=== PATIENT | female | born 1940 | race African-American/Black ===

== ENCOUNTER 2016-11-14 07:16 | Emergency (ER) | payer MEDICARE, MEDICAID ==
[~2016-11-14] VITALS: Ht 154.9 cm; Wt 59.0 kg
[~2016-11-14 07:16] MED LIST: ACYC200C PO; BEE POLLEN PO; BIOTIN PO; CLAR10 PO; DEXA2TAB PO; DIPH1TAB PO; FAMO20TA8 PO; HYDR-4094 PO; LORA1TAB PO; METH1TAB33 PO; METH4TAB17 PO; NORCO; NYST5ORA SSW; POTA10CA42 PO; PREMV VG; TIMOLOL 0.5% LEFTEYE; TURMERIC PO
[2016-11-14] MEDS ORDERED: DIAZEPAM 5 MG TABLET PO ONE (08:00)
[2016-11-14] MEDS ORDERED: MORPHINE SULFATE 10 MG/ML CPJ SUBCUT ONE (10:00)
[2016-11-14] MEDS ORDERED: ONDANSETRON 4MG ODT PO ONE (10:00)
[2016-11-14 11:55] VITALS: BP 136/90
== END 2016-11-14 11:57 | disposition home or self-care (01) ==
LOC: ER 08:17
DX: M54.40 Lumbago with sciatica, unspecified side (principal); I10 Essential (primary) hypertension; M19.90 Unspecified osteoarthritis, unspecified site; Z87.891 Personal history of nicotine dependence; G89.29 Other chronic pain; Z88.0 Allergy status to penicillin; Z88.5 Allergy status to narcotic agent; Z79.899 Other long term (current) drug therapy
CPT/HCPCS: 93971; 96372; 99284; J2270; Q0162

== ENCOUNTER 2017-09-20 08:46 | Emergency (ER) | payer MEDICARE, MEDICAID ==
[~2017-09-20] VITALS: Ht 160 cm; Wt 52.0 kg
[2017-09-20] MEDS ORDERED: IBUPROFEN 800MG TABLET PO ONE (09:15)
[2017-09-20] MEDS ORDERED: CYCLOBENZAPRINE 10MG TABLET PO ONE (09:15)
[2017-09-20] MEDS ORDERED: METHYLPREDNISOLONE SOD SUCC 125 MG/2 ML VIAL IM ONE (09:15)
[2017-09-20] MEDS ORDERED: KETOROLAC 30MG/ML VIAL IM ONE (10:45)
[2017-09-20 12:21] VITALS: BP 163/92
== END 2017-09-20 12:43 | disposition home or self-care (01) ==
LOC: ER 08:46
DX: G89.29 Other chronic pain (principal); M54.5 Low back pain; R20.0 Anesthesia of skin; M19.90 Unspecified osteoarthritis, unspecified site; Z88.0 Allergy status to penicillin; Z88.5 Allergy status to narcotic agent; Z79.899 Other long term (current) drug therapy
CPT/HCPCS: 96372; 99284; J1885; J2930

== ENCOUNTER 2017-11-13 14:47 | Inpatient (IN) | payer MEDICARE, MEDICAID ==
[~2017-11-13] VITALS: Ht 154.9 cm; Wt 55.8 kg
[2017-11-13 17:31] LABS: BASOPHILS % 0.3 % (0.0-2.0); EOSINOPHILS % 0.6 % (0.0-5.0); HEMATOCRIT. 40.6 % (36.0-48.0); HEMOGLOBIN. 13.6 g/dL (12.0-16.0); LYMPHOCYTES % 27.6 % (20.0-50.0); MEAN CORPUSCULAR HEMOGLOBIN 34.4 pg (28.0-32.0); MEAN CORPUSCULAR VOLUME 102.6 fL (81.0-99.0); MEAN PLATELET VOLUME 7.9 fl (7.4-10.4); MONOCYTES % 14.3 % (2.0-8.0); NEUTROPHILS % 57.2 % (40.0-76.0); PLATELET 168 x1000/uL (130-400); RED BLOOD CELL COUNT 3.96 mill/uL (4.2-5.4); RED CELL DISTRIBUTION WIDTH 13.1 % (11.6-14.6)
[2017-11-13 17:32] LABS: CHLORIDE 100 mEq/L (98-107)
[2017-11-13 17:34] LABS: PARTIAL THROMBOPLASTIN TIME 34.4 sec (23.4-31.0); PROTHROMBIN TIME 10.4 sec (9.4-11.6)
[2017-11-13 17:43] LABS: CREATINE KINASE 43 IU/L (26-192)
[2017-11-13 17:44] LABS: CREATINE KINASE MB FRACTION < 0.5 ng/mL (0.5-3.6)
[2017-11-13] MEDS ORDERED: ASPIRIN 81MG TABLET PO STA (18:20)
[2017-11-13] MEDS ORDERED: NITROGLYCERIN OINT 1GM/INCH UDPKT TD STA (18:20)
[2017-11-13] MEDS ORDERED: ONDANSETRON HCL 4MG/2ML VIAL IV STA (18:20)
[2017-11-13] MEDS ORDERED: MORPHINE SULFATE 4 MG/ML CPJ (NOT FOR IM USE) IV STA (18:20)
[2017-11-13 22:00] VITALS: BP_SYST 102; BP_SYST 103; BP_DIAS 60
[2017-11-13] MEDS ORDERED: GABA-531 PO (22:43)
[2017-11-13] MEDS ORDERED: FLUC200T51 PO (22:43)
[2017-11-13] MEDS ORDERED: CLIN300C11 PO (22:43)
[2017-11-13] MEDS ORDERED: DEXT 5%/0.45% NACL 1000ML 1,000 ML IV SCH (22:56)
[2017-11-13] MEDS ORDERED: HYDROMORPHONE HCL/PF 2MG/ML CPJ IV PRN (23:00)
[2017-11-13] MEDS ORDERED: ACETAMINOPHEN 325MG TABLET PO PRN (23:00)
[2017-11-13] MEDS ORDERED: LORAZEPAM 2MG/ML CPJ IV PRN (23:00)
[2017-11-13] MEDS ORDERED: CLONIDINE 0.1MG TABLET PO PRN (23:00)
[2017-11-13] MEDS ORDERED: ONDANSETRON HCL 4MG/2ML VIAL IV PRN (23:00)
[2017-11-13] MEDS ORDERED: FLUCONAZOLE 100MG TABLET PO SCH (23:30)
[2017-11-13 23:52] VITALS: BP 109/69
[2017-11-13] MEDS: MORPHINE SULFATE 4 MG/ML CPJ (NOT FOR IM USE) IV PRN (23:55)
[2017-11-14 00:07] VITALS: BP 112/63
[2017-11-14 04:00] VITALS: BP 102/61
[2017-11-14] MEDS: DEXAMETHASONE 4MG/ML 1ML VIAL IV SCH ×3 (06:17→21:12)
[2017-11-14 06:22] LABS: BASOPHILS % 0.4 % (0.0-2.0); EOSINOPHILS % 0.5 % (0.0-5.0); HEMATOCRIT. 31.8 % (36.0-48.0); HEMOGLOBIN. 10.9 g/dL (12.0-16.0); LYMPHOCYTES % 23.3 % (20.0-50.0); MEAN CORPUSCULAR HEMOGLOBIN 34.9 pg (28.0-32.0); MEAN CORPUSCULAR VOLUME 101.7 fL (81.0-99.0); MEAN PLATELET VOLUME 8.3 fl (7.4-10.4); MONOCYTES % 14.9 % (2.0-8.0); NEUTROPHILS % 60.9 % (40.0-76.0); PLATELET 154 x1000/uL (130-400); RED BLOOD CELL COUNT 3.12 mill/uL (4.2-5.4); RED CELL DISTRIBUTION WIDTH 12.8 % (11.6-14.6)
[2017-11-14] MEDS: MORPHINE SULFATE 4 MG/ML CPJ (NOT FOR IM USE) IV PRN ×2 (06:40→21:13)
[2017-11-14 07:44] LABS: CHLORIDE 101 mEq/L (98-107)
[2017-11-14 08:00] VITALS: BP 132/71
[2017-11-14 08:39] LABS: CLARITY URINE CLEAR (CLEAR); COLOR URINE YELLOW (YELLOW); KETONES URINE 1+ (NEGATIVE); LEUKOCYTE ESTERASE URINE NEGATIVE (NEGATIVE); NITRITE URINE NEGATIVE (NEGATIVE); OCCULT BLOOD URINE 3+ (NEGATIVE); PROTEIN URINE NEGATIVE (NEGATIVE); SPECIFIC GRAVITY URINE 1.019 (1.005-1.030); UROBILINOGEN URINE 0.2 E.U./dL (0.2-1.0)
[2017-11-14] MEDS ORDERED: CLINDAMYCIN HCL PO SCH (09:00)
[2017-11-14 09:12] LABS: *AMPHETAMINES SCREEN URINE NEGATIVE (NEGATIVE); *BARBITURATES SCREEN URINE NEGATIVE (NEGATIVE); *BENZODIAZEPINES SCREEN URINE NEGATIVE (NEGATIVE); *COCAINE SCREEN URINE NEGATIVE (NEGATIVE)
[2017-11-14 09:13] LABS: CANNABINOID URINE SCREEN NEGATIVE (NEGATIVE); METHADONE URINE SCREEN NEGATIVE (NEGATIVE); OPIATES URINE SCREEN PRESUMTIVE POSITIVE (NEGATIVE); PHENCYCLIDINE URINE SCREEN NEGATIVE (NEGATIVE)
[2017-11-14] MEDS: ENOXAPARIN 40MG/0.4ML SYR SUBCUT SCH (09:17)
[2017-11-14] MEDS: CLINDAMYCIN HCL 150MG CAPSULE PO SCH ×2 (10:29→13:29)
[2017-11-14 16:19] VITALS: BP 131/75
[2017-11-14 20:00] VITALS: BP 132/75
[2017-11-14 23:55] VITALS: BP 125/93
[2017-11-15] MEDS: MORPHINE SULFATE 4 MG/ML CPJ (NOT FOR IM USE) IV PRN (01:24)
[2017-11-15 04:00] VITALS: BP 147/80
[2017-11-15] MEDS: DEXAMETHASONE 4MG/ML 1ML VIAL IV SCH ×2 (05:02→05:08)
[2017-11-15 08:00] VITALS: BP 150/76
[2017-11-15] MEDS: ENOXAPARIN 40MG/0.4ML SYR SUBCUT SCH (09:00)
[2017-11-15 12:00] VITALS: BP 171/87
[2017-11-15] MEDS ORDERED: CLINDAMYCIN HCL 150MG CAPSULE PO SCH (18:00)
== END 2017-11-15 15:40 | disposition home or self-care (01) | DRG 552 ==
LOC: ER 14:47 → 8WST 19:59 → EDBEDREQ 20:04 → EDBEDREQTM 20:04 → ENRESERV 20:24
PROVIDERS: ADMIT Internal Medicine Nephrology; ATTEND Internal Medicine Nephrology
DX: M48.02 Spinal stenosis, cervical region (principal); J84.9 Interstitial pulmonary disease, unspecified; E87.1 Hypo-osmolality and hyponatremia; M41.9 Scoliosis, unspecified; M47.812 Spondylosis without myelopathy or radiculopathy, cervical region; M79.7 Fibromyalgia; M43.6 Torticollis; M06.9 Rheumatoid arthritis, unspecified; G89.29 Other chronic pain; B19.20 Unspecified viral hepatitis C without hepatic coma; M54.5 Low back pain; Z96.659 Presence of unspecified artificial knee joint; M48.061 Spinal stenosis, lumbar region without neurogenic claudication; M47.896 Other spondylosis, lumbar region; M25.78 Osteophyte, vertebrae; Z87.891 Personal history of nicotine dependence; Z90.49 Acquired absence of other specified parts of digestive tract; Z88.0 Allergy status to penicillin; Z88.8 Allergy status to other drugs, medicaments and biological substances
CPT/HCPCS: 36415; 71045; 72141; 72148; 80048; 80053; 80305; 81003; 82550; 82553; 83690; 83880; 84443; 84484; 85025; 85610; 85730; 93005; 96374; 96375; 97110; 97116; 97162; 97166; 99291; C1893; J1100; J1650; J2270; J2405; J3490

== ENCOUNTER 2018-05-21 14:17 | Emergency (ER) | payer MEDICARE, MEDICAID ==
[~2018-05-21] VITALS: Ht 154.9 cm; Wt 65.0 kg
[~2018-05-21 14:17] MED LIST changes: +CLIN300C11 PO; +FLUC200T51 PO; +GABA-531 PO
[2018-05-21] MEDS ORDERED: IBUPROFEN 600MG TABLET PO ONE (15:00)
[2018-05-21] MEDS ORDERED: TRAMADOL 50MG TABLET PO ONE (17:30)
[2018-05-21] MEDS ORDERED: CLONIDINE 0.1MG TABLET PO ONE (17:45)
[2018-05-21 19:18] VITALS: BP 198/106
== END 2018-05-21 19:37 | disposition home or self-care (01) ==
LOC: ER 14:17
DX: M54.5 Low back pain (principal); M54.2 Cervicalgia; I10 Essential (primary) hypertension; M41.9 Scoliosis, unspecified; M79.7 Fibromyalgia; Z88.5 Allergy status to narcotic agent; Z88.0 Allergy status to penicillin; V43.52XA Car driver injured in collision with other type car in traffic accident, initial encounter; Y93.89 Activity, other specified; Y92.481 Parking lot as the place of occurrence of the external cause
CPT/HCPCS: 72131; 99284

== ENCOUNTER 2018-09-03 06:52 | Inpatient (IN) | payer MEDICARE, MEDICAID ==
[~2018-09-03] VITALS: Ht 160 cm; Wt 53.5 kg
[2018-09-03] MEDS ORDERED: KETOROLAC 30MG/ML VIAL IV STA (07:52)
[2018-09-03] MEDS ORDERED: MORPHINE SULFATE 4 MG/ML CPJ (NOT FOR IM USE) IV STA (07:52)
[2018-09-03 08:42] LABS: BASOPHILS % 1.1 % (0.0-2.0); EOSINOPHILS % 1.4 % (0.0-5.0); HEMATOCRIT. 40.1 % (36.0-48.0); HEMOGLOBIN. 13.4 g/dL (12.0-16.0); LYMPHOCYTES % 43.7 % (20.0-50.0); MEAN CORPUSCULAR HEMOGLOBIN 32.8 pg (28.0-32.0); MEAN CORPUSCULAR VOLUME 98.3 fL (81.0-99.0); MEAN PLATELET VOLUME 8.1 fl (7.4-10.4); MONOCYTES % 10.2 % (2.0-8.0); NEUTROPHILS % 43.6 % (40.0-76.0); PLATELET 248 x1000/uL (130-400); RED BLOOD CELL COUNT 4.08 mill/uL (4.2-5.4); RED CELL DISTRIBUTION WIDTH 13.6 % (11.6-14.6)
[2018-09-03 08:50] LABS: CHLORIDE 103 mEq/L (98-107)
[2018-09-03 09:12] LABS: CLARITY URINE CLEAR (CLEAR); COLOR URINE YELLOW (YELLOW); KETONES URINE NEGATIVE (NEGATIVE); LEUKOCYTE ESTERASE URINE TRACE (NEGATIVE); NITRITE URINE NEGATIVE (NEGATIVE); OCCULT BLOOD URINE 3+ (NEGATIVE); PROTEIN URINE NEGATIVE (NEGATIVE); SPECIFIC GRAVITY URINE 1.009 (1.005-1.030); UROBILINOGEN URINE 0.2 E.U./dL (0.2-1.0)
[2018-09-03] MEDS ORDERED: MORPHINE SULFATE 4 MG/ML CPJ (NOT FOR IM USE) IV ONE (10:30)
[2018-09-03] MEDS ORDERED: KETOROLAC 30MG/ML VIAL IV PRN ×2 (12:15→16:00)
[2018-09-03] MEDS ORDERED: ONDANSETRON HCL 4MG/2ML INJ IV PRN (12:15)
[2018-09-03] MEDS ORDERED: AMLODIPINE 5MG TABLET PO NR (13:45)
[2018-09-03] MEDS: HYDRALAZINE 20MG/ML VIAL IV PRN (14:14)
[2018-09-03] MEDS ORDERED: LABETALOL HCL 20MG/4ML CARPUJECT IV ONE (15:00)
[2018-09-03] MEDS: HYDROMORPHONE HCL/PF 2MG/ML CPJ IV PRN ×2 (15:43→21:35)
[2018-09-03] MEDS: NIFEDIPINE XL 60MG TAB PO SCH ×2 (17:00→18:54)
[2018-09-03 21:00] VITALS: BP 171/106
[2018-09-03] MEDS ORDERED: AMLODIPINE 5MG TABLET PO SCH (21:00)
[2018-09-03 21:30] VITALS: BP 171/106
[2018-09-03] MEDS ORDERED: TIZA2CAP7 MT (22:20)
[2018-09-04] VITALS (7 sets, daily range): BP systolic 103–189; BP diastolic 51–102
[2018-09-04] MEDS ORDERED: TIZANIDINE HCL 2MG TABLET PO PRN (00:15)
[2018-09-04] MEDS: DIPHENHYDRAMINE 50MG/ML VIAL IV PRN ×3 (00:35→23:52)
[2018-09-04] MEDS: AMLODIPINE 10MG TABLET PO SCH ×2 (00:35→09:53)
[2018-09-04] MEDS: HYDROMORPHONE HCL/PF 2MG/ML CPJ IV PRN ×4 (01:36→19:55)
[2018-09-04 07:32] LABS: CHLORIDE 103 mEq/L (98-107)
[2018-09-04 07:39] LABS: BASOPHILS % 0.5 % (0.0-2.0); EOSINOPHILS % 1.6 % (0.0-5.0); HEMATOCRIT. 35.7 % (36.0-48.0); HEMOGLOBIN. 11.8 g/dL (12.0-16.0); LYMPHOCYTES % 22.4 % (20.0-50.0); MEAN CORPUSCULAR HEMOGLOBIN 32.8 pg (28.0-32.0); MEAN CORPUSCULAR VOLUME 98.9 fL (81.0-99.0); MEAN PLATELET VOLUME 7.9 fl (7.4-10.4); MONOCYTES % 13.1 % (2.0-8.0); NEUTROPHILS % 62.4 % (40.0-76.0); PLATELET 222 x1000/uL (130-400); RED BLOOD CELL COUNT 3.61 mill/uL (4.2-5.4); RED CELL DISTRIBUTION WIDTH 13.9 % (11.6-14.6)
[2018-09-04] MEDS: PANTOPRAZOLE SODIUM 40 MG/VIAL IV SCH ×2 (09:00→09:52)
[2018-09-04] MEDS: HYDRALAZINE 20MG/ML VIAL IV PRN (12:02)
[2018-09-04] MEDS: NIFEDIPINE XL 60MG TAB PO SCH ×2 (12:29→20:45)
[2018-09-05] VITALS: BP 105/45
[2018-09-05] MEDS: HYDROCODONE/ACETAMINOPHEN 5/325MG TABLET PO PRN ×4 (01:41→14:57)
[2018-09-05 04:00] VITALS: BP 109/50
[2018-09-05 07:03] LABS: BASOPHILS % 0.4 % (0.0-2.0); EOSINOPHILS % 0.4 % (0.0-5.0); HEMATOCRIT. 36.3 % (36.0-48.0); HEMOGLOBIN. 12.1 g/dL (12.0-16.0); LYMPHOCYTES % 17.6 % (20.0-50.0); MEAN CORPUSCULAR HEMOGLOBIN 32.7 pg (28.0-32.0); MONOCYTES % 11.8 % (2.0-8.0); NEUTROPHILS % 69.8 % (40.0-76.0); RED BLOOD CELL COUNT 3.71 mill/uL (4.2-5.4); RED CELL DISTRIBUTION WIDTH 14.1 % (11.6-14.6)
[2018-09-05 07:43] LABS: PLATELET 219 x1000/uL (130-400)
[2018-09-05 08:00] VITALS: BP 130/73
[2018-09-05 08:12] LABS: CHLORIDE 100 mEq/L (98-107)
[2018-09-05] MEDS: NIFEDIPINE XL 60MG TAB PO SCH ×2 (09:00→21:07)
[2018-09-05] MEDS: PANTOPRAZOLE SODIUM 40 MG/VIAL IV SCH (09:01)
[2018-09-05] MEDS: HYDROMORPHONE HCL/PF 2MG/ML CPJ IV PRN ×3 (11:31→21:47)
[2018-09-05 12:00] VITALS: BP 103/63
[2018-09-05] MEDS ORDERED: POTASSIUM CHLORIDE INJ 40 MEQ in DEXT 5% WATER 250 ML IV NR (15:00)
[2018-09-05] MEDS: DOCUSATE SODIUM 250MG CAPSULE PO SCH (15:00)
[2018-09-05] MEDS ORDERED: LEVOFLOXACIN 500MG TABLET PO SCH (15:00)
[2018-09-05] MEDS ORDERED: LACTULOSE 20G/30ML UDC PO NR (15:00)
[2018-09-05 16:00] VITALS: BP 114/60
[2018-09-05] MEDS: DIPHENHYDRAMINE 50MG/ML VIAL IV PRN (18:51)
[2018-09-05 20:00] VITALS: BP 113/48
[2018-09-05] MEDS ORDERED: LACTULOSE 20G/30ML UDC PO PRN (21:00)
[2018-09-06] VITALS: BP 111/48
[2018-09-06 04:00] VITALS: BP 111/53
[2018-09-06] MEDS: HYDROCODONE/ACETAMINOPHEN 5/325MG TABLET PO PRN (05:19)
[2018-09-06] MEDS: HYDROMORPHONE HCL/PF 2MG/ML CPJ IV PRN (07:00)
[2018-09-06 08:00] VITALS: BP 95/55
[2018-09-06 08:24] LABS: BASOPHILS % 0.2 % (0.0-2.0); EOSINOPHILS % 0.8 % (0.0-5.0); HEMATOCRIT. 35.2 % (36.0-48.0); HEMOGLOBIN. 11.5 g/dL (12.0-16.0); LYMPHOCYTES % 16.2 % (20.0-50.0); MEAN CORPUSCULAR HEMOGLOBIN 32.6 pg (28.0-32.0); MEAN CORPUSCULAR VOLUME 99.5 fL (81.0-99.0); MEAN PLATELET VOLUME 7.8 fl (7.4-10.4); MONOCYTES % 9.7 % (2.0-8.0); NEUTROPHILS % 73.1 % (40.0-76.0); PLATELET 208 x1000/uL (130-400); RED BLOOD CELL COUNT 3.54 mill/uL (4.2-5.4); RED CELL DISTRIBUTION WIDTH 14.2 % (11.6-14.6)
[2018-09-06] MEDS: DOCUSATE SODIUM 250MG CAPSULE PO SCH ×2 (09:00→09:33)
[2018-09-06] MEDS: NIFEDIPINE XL 60MG TAB PO SCH (09:00)
[2018-09-06] MEDS: PANTOPRAZOLE SODIUM 40 MG/VIAL IV SCH (09:33)
[2018-09-06 09:55] LABS: CHLORIDE 98 mEq/L (98-107)
[2018-09-06 10:56] VITALS: BP 95/55
[2018-09-06 12:00] VITALS: BP 102/59
[2018-09-18] MEDS ORDERED: IBUPROFEN 800MG TABLET PO PRN (13:15)
== END 2018-09-06 12:15 | disposition home or self-care (01) | DRG 551 ==
LOC: ER 06:52 → 5WST 11:39 → EDBEDREQ 11:41 → ENRESERV 20:09
PROVIDERS: ADMIT Internal Medicine; ATTEND Internal Medicine
DX: M48.061 Spinal stenosis, lumbar region without neurogenic claudication (principal); G92 Toxic encephalopathy; I50.22 Chronic systolic (congestive) heart failure; M41.9 Scoliosis, unspecified; M51.36 Other intervertebral disc degeneration, lumbar region; M47.9 Spondylosis, unspecified; M81.0 Age-related osteoporosis without current pathological fracture; D64.9 Anemia, unspecified; E66.9 Obesity, unspecified; E87.5 Hyperkalemia; E87.8 Other disorders of electrolyte and fluid balance, not elsewhere classified; F31.9 Bipolar disorder, unspecified; G89.29 Other chronic pain; I11.0 Hypertensive heart disease with heart failure; I48.91 Unspecified atrial fibrillation; Z88.0 Allergy status to penicillin; Z90.49 Acquired absence of other specified parts of digestive tract; Z90.710 Acquired absence of both cervix and uterus; Z96.89 Presence of other specified functional implants; Z88.5 Allergy status to narcotic agent; Z68.20 Body mass index [BMI] 20.0-20.9, adult
CPT/HCPCS: 36415; 72131; 72192; 73502; 74176; 76857; 80048; 87077; 87186; 93970; 96374; 96375; 96376; 97162; 99285; C1893; C9113; J0360; J1170; J1200; J1885; J2270; J2405; J3480; J7050; J7060; A4315

== ENCOUNTER 2018-09-17 17:58 | Inpatient (IN) | payer MEDICARE, MEDICAID ==
[~2018-09-17] VITALS: Ht 154.9 cm; Wt 49.4 kg
[~2018-09-17 17:58] MED LIST changes: -CLIN300C11 PO; +TIZA2CAP7 MT
[2018-09-17] MEDS ORDERED: SODIUM CHLORIDE 0.9% 1000ML BAG (SEPSIS BOLUS) IV ONE (18:45)
[2018-09-17] MEDS ORDERED: HYDROCODONE/ACETAMINOPHEN 5/325MG TABLET PO ONE (18:45)
[2018-09-17] MEDS ORDERED: LEVOFLOXACIN 750MG PREMIX 150 ML IV ONE (18:45)
[2018-09-17] MEDS ORDERED: ASPIRIN 81MG TABLET PO ONE ×2 (18:45→20:15)
[2018-09-17 19:32] LABS: BASOPHILS % 0.6 % (0.0-2.0); EOSINOPHILS % 0.2 % (0.0-5.0); HEMOGLOBIN. 12.3 g/dL (12.0-16.0); LYMPHOCYTES % 14.2 % (20.0-50.0); MEAN CORPUSCULAR HEMOGLOBIN 32.6 pg (28.0-32.0); MEAN CORPUSCULAR VOLUME 97.8 fL (81.0-99.0); MEAN PLATELET VOLUME 7.4 fl (7.4-10.4); PLATELET 192 x1000/uL (130-400); RED BLOOD CELL COUNT 3.78 mill/uL (4.2-5.4); RED CELL DISTRIBUTION WIDTH 14.6 % (11.6-14.6)
[2018-09-17 19:33] LABS: CHLORIDE 99 mEq/L (98-107)
[2018-09-17 19:37] LABS: INR 1.1; PROTHROMBIN TIME 10.6 sec (9.1-11.1)
[2018-09-17] MEDS ORDERED: HYDROCODONE/ACETAMINOPHEN 5/325MG TABLET PO STA (20:12)
[2018-09-17] MEDS: NITROGLYCERIN 0.4MG TABLET SL SL PRN ×2 (20:25→21:41)
[2018-09-17] MEDS ORDERED: FENTANYL CITRATE/PF 50MCG/ML 2ML VIAL IV ONE (22:15)
[2018-09-17] MEDS ORDERED: ACETAMINOPHEN 325MG TABLET PO PRN (23:45)
[2018-09-17] MEDS ORDERED: ENOXAPARIN 40MG/0.4ML SYR SUBCUT SCH (23:45)
[2018-09-17] MEDS ORDERED: ONDANSETRON HCL 4MG/2ML INJ IV PRN (23:45)
[2018-09-17] MEDS ORDERED: CLONIDINE 0.1MG TABLET PO PRN (23:45)
[2018-09-18] MEDS: HYDROMORPHONE HCL/PF 2MG/ML CPJ IV PRN ×4 (01:34→23:42)
[2018-09-18 06:50] LABS: CHLORIDE 103 mEq/L (98-107)
[2018-09-18 06:57] LABS: BASOPHILS % 0.4 % (0.0-2.0); EOSINOPHILS % 0.1 % (0.0-5.0); HEMOGLOBIN. 11.6 g/dL (12.0-16.0); LDL CHOLESTEROL 63 mg/dL (5-100); LYMPHOCYTES % 12.3 % (20.0-50.0); MEAN CORPUSCULAR HEMOGLOBIN 32.6 pg (28.0-32.0); MEAN CORPUSCULAR VOLUME 98.6 fL (81.0-99.0); MEAN PLATELET VOLUME 7.5 fl (7.4-10.4); MONOCYTES % 11.4 % (2.0-8.0); NEUTROPHILS % 75.8 % (40.0-76.0); PLATELET 166 x1000/uL (130-400); RED BLOOD CELL COUNT 3.55 mill/uL (4.2-5.4); RED CELL DISTRIBUTION WIDTH 14.7 % (11.6-14.6)
[2018-09-18 06:59] LABS: CREATINE KINASE 26 IU/L (26-192); HDL CHOLESTEROL 60 mg/dL (40-59)
[2018-09-18 07:01] LABS: CREATINE KINASE MB FRACTION < 1.0 ng/mL (0.5-3.6)
[2018-09-18 10:00] VITALS: BP 179/93
[2018-09-18 10:05] VITALS: BP 179/79
[2018-09-18] MEDS: ASPIRIN 81MG EC TABLET PO SCH (10:32)
[2018-09-18] MEDS: AMLODIPINE 10MG TABLET PO SCH (10:32)
[2018-09-18] MEDS ORDERED: DULO30CA2 PO (11:58)
[2018-09-18 12:00] VITALS: BP 132/82
[2018-09-18] MEDS ORDERED: PNEUMOCOCCAL 23-VAL P-SAC VAC 0.5 ML IM ONE (14:00)
[2018-09-18] MEDS: HYDROCODONE/ACETAMINOPHEN 5/325MG TABLET PO PRN (15:04)
[2018-09-18] MEDS: ENOXAPARIN 30MG/0.3ML SYR SUBCUT SCH (15:05)
[2018-09-18] MEDS ORDERED: REGADENOSON 0.4 MG/5 ML IV NR (15:45)
[2018-09-18 16:00] VITALS: BP 153/84
[2018-09-18] MEDS: GABAPENTIN 300MG CAPSULE PO SCH ×2 (17:22→22:14)
[2018-09-18] MEDS: TIZANIDINE HCL 2MG TABLET PO PRN (17:23)
[2018-09-18 20:00] VITALS: BP 91/53
[2018-09-18 21:28] LABS: CREATINE KINASE 33 IU/L (26-192)
[2018-09-18 21:29] LABS: CREATINE KINASE MB FRACTION < 1.0 ng/mL (0.5-3.6)
[2018-09-19] VITALS: BP 133/72
[2018-09-19] MEDS: TIZANIDINE HCL 2MG TABLET PO PRN (02:21)
[2018-09-19 04:00] VITALS: BP 115/60
[2018-09-19] MEDS: HYDROMORPHONE HCL/PF 2MG/ML CPJ IV PRN ×4 (05:38→23:15)
[2018-09-19] MEDS: GABAPENTIN 300MG CAPSULE PO SCH ×3 (06:36→21:21)
[2018-09-19 07:26] LABS: BASOPHILS % 0.3 % (0.0-2.0); EOSINOPHILS % 0.5 % (0.0-5.0); HEMATOCRIT. 34.8 % (36.0-48.0); HEMOGLOBIN. 11.4 g/dL (12.0-16.0); LYMPHOCYTES % 10.8 % (20.0-50.0); MEAN CORPUSCULAR HEMOGLOBIN 32.3 pg (28.0-32.0); MEAN CORPUSCULAR VOLUME 98.4 fL (81.0-99.0); MEAN PLATELET VOLUME 7.9 fl (7.4-10.4); MONOCYTES % 9.4 % (2.0-8.0); PLATELET 177 x1000/uL (130-400); RED BLOOD CELL COUNT 3.54 mill/uL (4.2-5.4); RED CELL DISTRIBUTION WIDTH 14.6 % (11.6-14.6)
[2018-09-19 07:31] LABS: CHLORIDE 100 mEq/L (98-107)
[2018-09-19 08:00] VITALS: BP 141/80
[2018-09-19] MEDS: ASPIRIN 81MG EC TABLET PO SCH (08:26)
[2018-09-19] MEDS: DULOXETINE HCL 30MG DR CAPSULE PO SCH (08:27)
[2018-09-19] MEDS: ENOXAPARIN 30MG/0.3ML SYR SUBCUT SCH (08:27)
[2018-09-19] MEDS: AMLODIPINE 10MG TABLET PO SCH ×4 (08:28→10:13)
[2018-09-19] MEDS ORDERED: REGADENOSON 0.4 MG/5 ML IV ONE (11:44)
[2018-09-19 12:00] VITALS: BP 130/74
[2018-09-19 16:00] VITALS: BP 124/57
[2018-09-19 20:00] VITALS: BP 119/59
[2018-09-20] VITALS: BP 141/71
[2018-09-20 04:00] VITALS: BP 138/80
[2018-09-20] MEDS: HYDROMORPHONE HCL/PF 2MG/ML CPJ IV PRN ×2 (04:31→09:35)
[2018-09-20] MEDS: GABAPENTIN 300MG CAPSULE PO SCH ×3 (06:10→21:25)
[2018-09-20 08:00] VITALS: BP 148/80
[2018-09-20 09:11] LABS: BASOPHILS % 0.3 % (0.0-2.0); HEMATOCRIT. 33.6 % (36.0-48.0); HEMOGLOBIN. 11.3 g/dL (12.0-16.0); LYMPHOCYTES % 10.5 % (20.0-50.0); MEAN CORPUSCULAR HEMOGLOBIN 33.1 pg (28.0-32.0); MEAN CORPUSCULAR VOLUME 98.6 fL (81.0-99.0); MEAN PLATELET VOLUME 8.1 fl (7.4-10.4); MONOCYTES % 11.2 % (2.0-8.0); PLATELET 175 x1000/uL (130-400); RED BLOOD CELL COUNT 3.41 mill/uL (4.2-5.4); RED CELL DISTRIBUTION WIDTH 14.3 % (11.6-14.6)
[2018-09-20 09:19] LABS: CHLORIDE 99 mEq/L (98-107)
[2018-09-20] MEDS: AMLODIPINE 10MG TABLET PO SCH (09:29)
[2018-09-20] MEDS: ASPIRIN 81MG EC TABLET PO SCH (09:29)
[2018-09-20] MEDS: DULOXETINE HCL 30MG DR CAPSULE PO SCH (09:29)
[2018-09-20] MEDS: ENOXAPARIN 30MG/0.3ML SYR SUBCUT SCH (09:30)
[2018-09-20 12:00] VITALS: BP 138/68
[2018-09-20] MEDS ORDERED: METHOTREXATE SODIUM 2 . 5MG TABLET PO SCH (14:00)
[2018-09-20 16:00] VITALS: BP 159/81
[2018-09-20] MEDS: HYDROCODONE/ACETAMINOPHEN 5/325MG TABLET PO PRN (18:29)
[2018-09-20 20:00] VITALS: BP 105/47
[2018-09-20] MEDS: METOPROLOL TARTRATE 25MG TABLET PO SCH (21:00)
[2018-09-20] MEDS: DOCUSATE SODIUM 100MG CAPSULE PO PRN (21:24)
[2018-09-21] VITALS: BP 115/64
[2018-09-21 04:00] VITALS: BP 129/68
[2018-09-21] MEDS: GABAPENTIN 300MG CAPSULE PO SCH ×3 (05:57→21:18)
[2018-09-21] MEDS: HYDROMORPHONE HCL/PF 2MG/ML CPJ IV PRN ×4 (06:25→21:40)
[2018-09-21 08:00] VITALS: BP 116/99
[2018-09-21] MEDS: ENOXAPARIN 30MG/0.3ML SYR SUBCUT SCH (09:10)
[2018-09-21] MEDS: ASPIRIN 81MG EC TABLET PO SCH (09:10)
[2018-09-21] MEDS: METOPROLOL TARTRATE 25MG TABLET PO SCH ×2 (09:11→21:18)
[2018-09-21] MEDS: AMLODIPINE 10MG TABLET PO SCH (09:11)
[2018-09-21] MEDS: DULOXETINE HCL 30MG DR CAPSULE PO SCH (09:11)
[2018-09-21 12:00] VITALS: BP 112/56
[2018-09-21] MEDS: HYDROCODONE/ACETAMINOPHEN 5/325MG TABLET PO PRN (12:59)
[2018-09-21] MEDS: DOCUSATE SODIUM 100MG CAPSULE PO PRN (12:59)
[2018-09-21 16:00] VITALS: BP 103/63
[2018-09-21 20:00] VITALS: BP 118/63
[2018-09-22] VITALS (7 sets, daily range): BP systolic 117–150; BP diastolic 56–82
[2018-09-22] MEDS: GABAPENTIN 300MG CAPSULE PO SCH ×3 (05:18→14:34)
[2018-09-22] MEDS: HYDROMORPHONE HCL/PF 2MG/ML CPJ IV PRN ×3 (05:23→17:34)
[2018-09-22] MEDS: ENOXAPARIN 30MG/0.3ML SYR SUBCUT SCH (09:10)
[2018-09-22] MEDS: AMLODIPINE 10MG TABLET PO SCH (09:10)
[2018-09-22] MEDS: DULOXETINE HCL 30MG DR CAPSULE PO SCH (09:10)
[2018-09-22] MEDS: ASPIRIN 81MG EC TABLET PO SCH (09:10)
[2018-09-22] MEDS: METOPROLOL TARTRATE 25MG TABLET PO SCH (09:10)
== END 2018-09-22 20:16 | DRG 206 ==
LOC: ER 18:15 → 5WST 22:17 → EDBEDREQTM 22:32 → EDBEDREQ 22:32 → SUPCPDRO 23:35 → ENRESERV 09-18 07:08
PROVIDERS: ADMIT Hospitalist; ATTEND Hospitalist
DX: M94.0 Chondrocostal junction syndrome [Tietze] (principal); E87.1 Hypo-osmolality and hyponatremia; I42.9 Cardiomyopathy, unspecified; I10 Essential (primary) hypertension; M06.9 Rheumatoid arthritis, unspecified; M79.7 Fibromyalgia; F31.9 Bipolar disorder, unspecified; I49.1 Atrial premature depolarization; J44.9 Chronic obstructive pulmonary disease, unspecified; M19.90 Unspecified osteoarthritis, unspecified site; M81.0 Age-related osteoporosis without current pathological fracture; Z96.653 Presence of artificial knee joint, bilateral; B19.20 Unspecified viral hepatitis C without hepatic coma; M47.892 Other spondylosis, cervical region; M48.02 Spinal stenosis, cervical region; M51.36 Other intervertebral disc degeneration, lumbar region; M41.86 Other forms of scoliosis, lumbar region; Z79.899 Other long term (current) drug therapy; Z87.891 Personal history of nicotine dependence; Z88.0 Allergy status to penicillin; Z88.5 Allergy status to narcotic agent
CPT/HCPCS: 36415; 71045; 73130; 80048; 80061; 82550; 82553; 83605; 83880; 84484; 90732; 93005; 93306; 96365; 96366; 97162; 97166; 99291; A9500; J1170; J1650; J1956; J2405; J2785; J3010; J7030; J8610